=== PATIENT | male | born 1980 | race Caucasian/White ===

== ENCOUNTER → 2017-11-10 | Outpatient (CLI) | payer OTHER ==
--- NOTE | 2017-11-10 12:38 | DIAGNOSTIC IMAGING REPORT ---
ULTRASOUND BILATERAL GROIN NONVASCULAR CLINICAL HISTORY: Lower abdominal pain. FINDINGS: Real-time, grayscale, and color-flow sonography of the groin is performed bilaterally to assess for inguinal hernia. There is no sonographic evidence of inguinal hernia bilaterally. No inguinal hernia could be elicited by having the patient perform the Valsalva maneuver. No inguinal adenopathy is identified. IMPRESSION: There is no sonographic evidence of right or left inguinal hernia as clinically queried. Electronically signed by: Ras Molina M.D. 11/10/2017 12:37 PM Dictated Date/Time: 11/10/2017 12:36 PM
== END | disposition home or self-care (01) ==
LOC: C.ULTR 11:59
PROVIDERS: ATTEND Family Medicine
DX: R10.30 Lower abdominal pain, unspecified (principal)

== ENCOUNTER 2018-05-20 10:20 | Emergency (ER) | payer OTHER ==
[~2018-05-20] VITALS: Ht 180.3 cm; Wt 79.9 kg
[2018-05-20 10:29] VITALS: TEMP 36.8; Ht 180.3 cm; Wt 79.9 kg
--- NOTE | 2018-05-20 10:53 | EMERGENCY ROOM VISIT NOTE ---
History Report prepared by Juan Alberto: Lashay Leone Under the Supervision of: Dr. Neo Garduno M.D. First contact with patient: 10:42 Chief Complaint: RABIES VACCINE Stated Complaint: POSSIBLE EXPOSURE TO BAT History of Present Illness The patient is a 38 year old male who presents to the Emergency Room with complaints of a rabies exposure yesterday. The patient states that he was working on his attic yesterday and that there were bat feces in the attic. He states that he did not see bats initially but reports that he noticed 2 red dots on his left arm when he went downstairs. He states that when he went back up to the attic and that he saw a bat hanging. He states that he is not sure when his last tetanus shot was but states that he thinks that it was in the last few years. Source of History: patient Onset: today Position: other (generalized) Quality: other (rabies vaccinations) Timing: constant Review of Systems See HPI for pertinent positives and negatives. A total of ten systems were reviewed and were otherwise negative. Past Medical & Surgical Medical Problems: (1) No active medical problems Family History Patient reports no known family medical history. Social History Smoking Status: Never Smoker Current/Historical Medications Scheduled Cetirizine (Zyrtec), 10 MG PO DAILY Fluticasone Propionate (Nasal) (Flonase Allergy Relief ), 2 SPRAYS SUMEET DAILY Allergies Coded Allergies: BEE STING (Unverified Allergy, Unknown, HIVES, 05/20/18) No Known Allergies (Verified , 04/14/06) Physical Exam Vital Signs Date Time Temp Pulse Resp B/P (MAP) Pulse Ox O2 Delivery O2 Flow Rate FiO2 05/20/18 15:05 78 20 127/78 98 Room Air 05/20/18 13:48 87 20 128/87 100 Room Air 05/20/18 12:04 65 20 125/74 96 Room Air 05/20/18 10:29 36.8 74 18 154/90 99 Room Air Physical Exam Physical Exam GENERAL: He is oriented to person, place, and time. He appears well-developed and well-nourished. He does not appear distressed. HENT: Exam performed. Head: Normocephalic and atraumatic. Right Ear: External ear normal. No mastoid tenderness. Left Ear: External ear normal. No mastoid tenderness. Mouth/Throat: The oropharynx is clear and moist. No trismus in the jaw. No dental abscesses or uvula swelling. No oropharyngeal exudate or tonsillar abscesses. EYES: Conjunctivae and EOM are normal. Pupils are equal, round, and reactive to light. Right eye exhibits no discharge. Left eye exhibits no discharge. No scleral icterus. NECK: Normal range of motion. Neck supple. No JVD present. No spinous process tenderness present. No carotid bruit present. No rigidity. No tracheal deviation and normal range of motion present. No Brudzinski's sign and no Kernig 's sign noted. CV: Normal rate, regular rhythm, normal heart sounds and intact distal pulses. There is no peripheral edema. Palpable radial pulses bue. PULM/CHEST: Effort normal and breath sounds normal. No respiratory distress. No stridor. He has no wheezes. He has no rales. Chest Wall: He exhibits no tenderness. ABD: The abdomen is soft. Bowel sounds are normal. He has no distension. No mass is present. There is no tenderness. There is no rebound, no guarding, no Wade's sign and no tenderness at McBurney's point. Rovsig negative. MUSC/SKEL: Normal range of motion. There is no peripheral edema, tenderness or deformity. LYMPH: No cervical adenopathy. NEURO: He is alert and oriented to person, place, and time. He has normal strength. No cranial nerve deficit or sensory deficit. Coordination and gait normal. GCS eye subscore is 4. GCS verbal subscore is 5. GCS motor subscore is 6. Cerebellar tests wnl. SKIN: Skin is warm and dry. He is not diaphoretic. Abrasion to the left upper extremity. PSYCH: He has a normal mood and affect. Behavior is normal. Judgment and thought content normal. Medical Decision & Procedures Medications Administered Medications (Trade) Dose Ordered Sig/Axel Route Start Time Stop Time Status Last Admin Dose Admin Rabies Vaccine Human Diploid Cell (Imovax Rabies) 2.5 interunit ONCE ONCE IM. 05/20/18 11:00 05/20/18 11:01 DC 05/20/18 11:15 2.5 INTERUNIT Rabies Immune Globulin (Imogam Rabies Inj) 1,600 interunit ONCE ONCE IM. 05/20/18 11:00 05/20/18 11:01 DC 05/20/18 14:32 1,600 INTERUNIT ED Course 1050: The patient was evaluated in room C7. A complete history and physical exam was performed.` 1100: Ordered Rabies Immune Globulin 1600 interunit IM, Rabies Vaccine Human Diploid Cell 2.5 interunit IM. 1214: The pharmacy ran out of rabies immunoglobin. We are waiting for rabies immunoglobin to be brought to the hospital by the carrier. Medical Decision 1050: The patient was evaluated in room C7. A complete history and physical exam was performed.` 1100: Ordered Rabies Immune Globulin 1600 interunit IM, Rabies Vaccine Human Diploid Cell 2.5 interunit IM. 1214: The pharmacy ran out of rabies immunoglobin. We are waiting for rabies immunoglobin to be brought to the hospital by the carrier. Medication Reconcilliation Current Medication List: was personally reviewed by me Blood Pressure Screening Patient's blood pressure: Elevated blood pressure Blood pressure disposition: Elevated BP felt to be situational Impression Primary Impression: Rabies exposure Scribe Attestation The scribe's documentation has been prepared under my direction and personally reviewed by me in its entirety. I confirm that the note above accurately reflects all work, treatment, procedures, and medical decision making performed by me. The chart was completed utilizing [employer] Speech voice recognition software. Grammatical errors, random word insertions, pronoun errors, and incomplete sentences are an occasional consequence of this system due to software limitations, ambient noise, and hardware issues. Any formal questions or concerns about the content, text, or information contained within the body of this dictation should be directly addressed to the physician for clarification. Departure Information Dispostion Home / Self-Care Referrals Salinas Santamaria M.D. (PCP) Forms HOME CARE DOCUMENTATION FORM, IMPORTANT VISIT INFORMATION, WORK / SCHOOL INSTRUCTIONS Patient Instructions My [facility], Rabies, Rabies Immune Globulin human RIG solution for injection Additional Instructions Return to the emergency department on May 23, May 27, and June 03, 2018 to receive remaining doses of post exposure prophylaxis to rabies. Return to the emergency department if you develop fever greater than 100.4, light sensitivity, adverse reactions to water, salivating at the mouth, altered mental status.
[2018-05-20] MEDS ORDERED: RABIES IMMUNE GLOBULIN (HUMAN) 150 INTER.UNIT/ML 2 ML VIAL IM. ONE (11:00)
[2018-05-20] MEDS ORDERED: RABIES VACCINE (IMOVAX) HUMAN DIPL CELL 2.5 INTER.UNIT/ML SYR IM. ONE (11:00)
[2018-05-20] MEDS ORDERED: CETI10TA84 PO (11:50)
[2018-05-20] MEDS ORDERED: FLUT1SPR12 NAE (11:50)
[2018-05-20 15:05] VITALS: BP 127/78; PULSE 78; O2SAT 98
== END 2018-05-20 15:09 | disposition home or self-care (01) ==
LOC: C.EDB 10:21 → C.EDC 15:09
DX: Z20.3 Contact with and (suspected) exposure to rabies (principal); Z23 Encounter for immunization

== ENCOUNTER 2018-05-23 14:12 | Emergency (ER) | payer OTHER ==
[~2018-05-23] VITALS: Ht 180.3 cm; Wt 81.1 kg
[~2018-05-23 14:12] MED LIST: CETI10TA84 PO; FLUT1SPR12 NAE
[2018-05-23 14:20] VITALS: BP 152/88; TEMP 36.8; Ht 180.3 cm; Wt 81.1 kg
[2018-05-23] MEDS ORDERED: RABIES VACCINE (IMOVAX) HUMAN DIPL CELL 2.5 INTER.UNIT/ML SYR IM. ONE (14:30)
[2018-05-23] MEDS ORDERED: MULT-506 PO (14:37)
[2018-05-23 14:42] VITALS: PULSE 74; O2SAT 99
--- NOTE | 2018-05-23 20:24 | EMERGENCY ROOM VISIT NOTE ---
History First contact with patient: 14:23 Chief Complaint: RABIES VACCINE REPEAT VISIT Stated Complaint: RABIES REPEAT History of Present Illness The patient is a 38 year old male who presents to the Emergency Room for his day 3 Imovax injection. The patient denies actions to his injections. Review of Systems 6 system review was performed and was negative except for pertinent positives and negatives as indicated in history of present illness Past Medical/Surgical History Medical Problems: (1) No active medical problems Family History Patient reports no known family medical history. Social History Smoking Status: Never Smoker Alcohol Use: occasionally Marital Status: single Occupation Status: employed Current/Historical Medications Scheduled Cetirizine (Zyrtec), 10 MG PO DAILY Fluticasone Propionate (Nasal) (Flonase Allergy Relief Ch), 2 SPRAYS SUMEET DAILY Multivitamin (Multivitamin), 1 TAB PO DAILY Physical Exam Vital Signs Date Time Temp Pulse Resp B/P (MAP) Pulse Ox O2 Delivery O2 Flow Rate FiO2 05/23/18 14:42 74 18 99 05/23/18 14:20 36.8 72 16 152/88 98 Room Air Physical Exam CONSTITUTIONAL: Healthy and well nourished. HEENT: Normocephalic, atraumatic. Pupils equal, round and reactive. No scleral icterus or conjunctival injection/pallor. MUSCULOSKELETAL: Examination of the left volar wrist shows 2 erythematous lozano that now appears more like abrasions. No surrounding erythema or induration noted. INTEGUMENTARY: No rash or other significant dermatologic conditions noted. NEUROLOGIC: No focal neurologic deficits noted. Left hand and fingers are sensory intact. Medical Decision & Procedures Medications Administered Medications (Trade) Dose Ordered Sig/[facility] Route Start Time Stop Time Status Last Admin Dose Admin Rabies Vaccine Human Diploid Cell (Imovax Rabies) 2.5 interunit ONCE ONCE IM. 05/23/18 14:30 05/23/18 14:31 DC 05/23/18 14:42 2.5 INTERUNIT ED Course Patient history and physical exam were performed. Nurse's notes were reviewed. Vital signs were reviewed and were normal. The patient was administered Imovax IM without adverse reaction. The patient will return on day 7 and 14 for subsequent injections, sooner with any adverse reaction. Medical Decision Blood Pressure Screening Patient's blood pressure: Normal blood pressure Impression Primary Impression: Rabies, need for prophylactic vaccination against Departure Information Dispostion Home / Self-Care Condition GOOD Forms HOME CARE DOCUMENTATION FORM, IMPORTANT VISIT INFORMATION Patient Instructions My [facility] Additional Instructions Return on Tuesday for your next Imovax injection, sooner with any adverse reactions.
== END 2018-05-23 14:43 | disposition home or self-care (01) ==
LOC: C.EDB 14:12 → C.EDD 14:43
DX: Z20.3 Contact with and (suspected) exposure to rabies (principal); Z23 Encounter for immunization

== ENCOUNTER 2018-05-27 09:17 | Emergency (ER) | payer OTHER ==
[~2018-05-27] VITALS: Ht 180.3 cm; Wt 80.0 kg
[~2018-05-27 09:17] MED LIST changes: +MULT-506 PO
[2018-05-27 09:38] VITALS: TEMP 36.9; Ht 180.3 cm; Wt 80.0 kg
[2018-05-27] MEDS ORDERED: RABIES VACCINE (IMOVAX) HUMAN DIPL CELL 2.5 INTER.UNIT/ML SYR IM. ONE (10:00)
[2018-05-27 10:20] VITALS: BP 127/81; PULSE 84; O2SAT 96
--- NOTE | 2018-05-27 16:47 | EMERGENCY ROOM VISIT NOTE ---
ED Visit Note First contact with patient: 09:35 Chief complaint: Rabies exposure HPI: This 38-year-old white male presents for his next injection of Imovax. This is injection # 3. patient denies any rashes or problems from the last injection. No shortness of breath. Pain is 0/10. No other complaints. Review of systems: Unchanged from previous exam. Surgical history: Unchanged from previous exam. Medical history: Unchanged from previous exam Current medications: Unchanged from previous exam Allergies: Unchanged from previous exam Social history: Unchanged from previous exam Vitals: Afebrile. Reviewed and filed in patient's chart General: Well-developed, well-nourished, young white male, in no acute distress. He is sitting in a chair. Alert and oriented. Skin:Warm and dry with good turgor. No rashes or lesions. No ecchymosis or erythema. The patient is not diaphoretic. No abrasions. Musculoskeletal: Full motion of the right shoulder without discomfort. Impression: Rabies exposure. Plan: Patient was educated regarding today's findings. They were given Imovax 1 ML IM. Patient was monitored for 20 minutes. No adverse changes were noted. Patient was discharged with instructions to follow-up at the next scheduled injection, next Tuesday. Tylenol as needed for any discomfort. Benadryl as needed for any itch. Return to the ER for any signs of allergic reaction. Problem List Medical Problems: (1) No active medical problems Status: Chronic Current/Historical Medications Scheduled Cetirizine (Zyrtec), 10 MG PO DAILY Fluticasone Propionate (Nasal) (Flonase Allergy Relief ), 2 SPRAYS SUMEET DAILY Multivitamin (Multivitamin), 1 TAB PO DAILY Allergies Coded Allergies: BEE STING (Verified Allergy, Unknown, HIVES, 05/27/18) Vital Signs Date Time Temp Pulse Resp B/P (MAP) Pulse Ox O2 Delivery O2 Flow Rate FiO2 05/27/18 10:20 84 20 127/81 96 05/27/18 09:38 36.9 84 20 127/81 96 Room Air 05/27/18 09:21 36.9 84 20 127/81 96 Room Air Medications Administered Medications (Trade) Dose Ordered Sig/Axel Route Start Time Stop Time Status Last Admin Dose Admin Rabies Vaccine Human Diploid Cell (Imovax Rabies) 2.5 interunit ONCE ONCE IM. 05/27/18 10:00 05/27/18 10:01 DC 05/27/18 10:05 2.5 INTERUNIT Departure Information Impression Primary Impression: Rabies, need for prophylactic vaccination against Dispostion Home / Self-Care Condition GOOD Forms WORK / SCHOOL INSTRUCTIONS, HOME CARE DOCUMENTATION FORM, MOTRIN USE, TYLENOL USE, IMPORTANT VISIT INFORMATION Patient Instructions [facility] Additional Instructions Tylenol and Motrin every 6 hours as needed for discomfort Benadryl every 6 hours as needed for rash/itching Return to the ED next Tuesday for your final vaccination Follow-up with your primary care provider for any other concerns
== END 2018-05-27 10:21 | disposition home or self-care (01) ==
LOC: C.EDB 09:18 → C.EDA 10:21
DX: Z23 Encounter for immunization (principal); Z20.3 Contact with and (suspected) exposure to rabies

== ENCOUNTER 2018-06-03 07:43 | Emergency (ER) | payer OTHER ==
[~2018-06-03] VITALS: Ht 180.3 cm; Wt 80.1 kg
[2018-06-03 07:47] VITALS: BP 130/79; PULSE 54; TEMP 36.4; O2SAT 99; Ht 180.3 cm; Wt 80.1 kg
--- NOTE | 2018-06-03 08:09 | EMERGENCY ROOM VISIT NOTE ---
ED Visit Note First contact with patient: 08:03 CHIEF COMPLAINT: Rabies shot #4 HISTORY OF PRESENT ILLNESS: Patient is a 38-year-old male who returns the emergency department as advised for his fourth and final rabies vaccination. He denies any problems with the prior vaccinations, no questions or concerns. REVIEW OF SYSTEMS: Review of systems as per HPI. All other systems reviewed were negative. At least 3 systems reviewed. PMH: Electronic medical records are reviewed and summarized as above/below. See Problem List.. SOCIAL HISTORY: Patient lives at home. PHYSICAL EXAM: Vital Signs: Reviewed Nurse's notes. HEAD: Atraumatic, without temporal or scalp tenderness. EYES: PERRL, EOMI, no discharge or injection. SKIN: Normal. NEUROLOGICAL: Alert and cooperative. Sensory and motor functions grossly intact. EMERGENCY DEPARTMENT COURSE: The patient was given Imovax IM, observed and then discharged. Problem List Medical Problems: (1) No active medical problems Status: Chronic Current/Historical Medications Scheduled Cetirizine (Zyrtec), 10 MG PO DAILY Fluticasone Propionate (Nasal) (Flonase Allergy Relief ), 2 SPRAYS SUMEET DAILY Multivitamin (Multivitamin), 1 TAB PO DAILY Allergies Coded Allergies: BEE STING (Verified Allergy, Unknown, HIVES, 05/27/18) Vital Signs Date Time Temp Pulse Resp B/P (MAP) Pulse Ox O2 Delivery O2 Flow Rate FiO2 06/03/18 07:47 36.4 54 18 130/79 99 Room Air Departure Information Impression Primary Impression: Rabies, need for prophylactic vaccination against Referrals No Doctor, Assigned (PCP) Patient Instructions [facility]
[2018-06-03] MEDS ORDERED: RABIES VACCINE (IMOVAX) HUMAN DIPL CELL 2.5 INTER.UNIT/ML SYR IM. ONE (08:15)
== END 2018-06-03 08:17 | disposition home or self-care (01) ==
LOC: C.EDB 07:44 → C.EDA 08:17
DX: Z23 Encounter for immunization (principal); Z20.3 Contact with and (suspected) exposure to rabies; Z79.899 Other long term (current) drug therapy; Z91.030 Bee allergy status